=== PATIENT | male | born 1945 ===

== ENCOUNTER 2020-12-26 05:50 | Day surgery (SDC) | payer OTHER ==
[~2020-12-26 05:50] MED LIST: ATORVASTA PO; BAYER THERAPY325 MG PO; COZAAR100 MG PO; GABAPEN PO
== END 2020-12-26 12:45 | disposition home or self-care (01) ==
LOC: CIR.AMB 05:50
PROVIDERS: ATTEND Orthopaedic Surgery Hand Surgery
DX: G56.01 Carpal tunnel syndrome, right upper limb (principal); Z20.822 Contact with and (suspected) exposure to COVID-19